=== PATIENT | female | born 1945 | race Caucasian/White ===

== ENCOUNTER → 2017-06-10 | Outpatient (CLI) | payer BC ==
--- NOTE | 2017-06-18 06:19 | CODING QUERY MEDICAL NECESSITY ---
CQSUPPORTING DIAGNOSIS NEEDED A supporting diagnosis is required for the test/procedure performed on this patient in order for us to be reimbursed by the patient's insurance. Please provide a supporting diagnosis for the following test/procedure listed below next to the test name along with your signature. *If there is no additional diagnosis for this patient that would support the following test/procedure please document that below next to the test/procedure. Test(s)/Procedure(s) that require a supporting diagnosis: ALEX 06/10/17 BONE MINERAL DENSITY STUDY Provider Signature: Date: Thank you Yin Lopez Health Information Management Once completed, please kindly fax back to [phone] For questions please call [phone]
== END | disposition home or self-care (01) ==
LOC: C.MAMM 10:27
PROVIDERS: ATTEND Family Medicine
DX: E78.5 Hyperlipidemia, unspecified (principal); I10 Essential (primary) hypertension; M85.80 Other specified disorders of bone density and structure, unspecified site

== ENCOUNTER 2024-08-11 09:20 | Observation (INO) ==
--- NOTE | 2024-07-01 10:14 | PAT Medication Instructions ---
Medication Instructions Date of Service July 01, 2024 Home Medications allopurinol 300 mg tablet 300 mg PO QAM doxycycline monohydrate 40 mg capsule,immediate - delay release (Oracea) 40 mg PO QAM lorazepam 0.5 mg tablet 0.5 mg PO HS naproxen 500 mg tablet 500 mg PO BID sertraline 50 mg tablet 50 mg PO QAM cholecalciferol (vitamin D3) 50 mcg (2,000 unit) tablet (Vitamin D3) 50 mcg PO QAM metoprolol succinate 25 mg tablet,extended release 24 hr 25 mg PO HS omega 5-ohe-fdk-fish oil 900 mg-1,400 mg capsule,delayed release 1 cap PO BID rosuvastatin 10 mg tablet 10 mg PO QAM calcium 600 mg capsule 600 mg PO QAM coenzyme Q10 100 mg chewable tablet 200 mg PO QAM multivitamin-ferrous fumarate-folic acid 18 mg-400 mcg tablet (Centrum Women) 1 tab PO QAM ASK your surgeon for instructions naproxen 500 mg tablet 500 mg PO BID STOP taking 2 weeks before surgery (or as soon as possible if surgery is within 2 weeks) omega 2-cuj-ghn-fish oil 900 mg-1,400 mg capsule,delayed release 1 cap PO BID coenzyme Q10 100 mg chewable tablet 200 mg PO QAM DO NOT take the morning of surgery cholecalciferol (vitamin D3) 50 mcg (2,000 unit) tablet (Vitamin D3) 50 mcg PO QAM calcium 600 mg capsule 600 mg PO QAM multivitamin-ferrous fumarate-folic acid 18 mg-400 mcg tablet (Centrum Women) 1 tab PO QAM Take morning of surgery With a small sip of water, OTHERWISE NOTHING TO EAT OR DRINK AFTER MIDNIGHT: allopurinol 300 mg tablet 300 mg PO QAM doxycycline monohydrate 40 mg capsule,immediate - delay release (Oracea) 40 mg PO QAM sertraline 50 mg tablet 50 mg PO QAM rosuvastatin 10 mg tablet 10 mg PO QAM Take evening before surgery lorazepam 0.5 mg tablet 0.5 mg PO HS metoprolol succinate 25 mg tablet,extended release 24 hr 25 mg PO HS Other Notes If you have any questions please call us at [phone] or [phone] or [phone] or [phone]
--- NOTE | 2024-07-09 10:34 | Anesthesiology Consultation ---
Date of Service July 09, 2024 Assessment & Plan (1) Encounter for pre-operative examination: - Infectious disease screening: Per assessment on 07/09/24: No known recent infectious disease contacts or current infectious disease symptoms. - Outpatient joint assessment: Pt currently scheduled for inpatient pathway. If surgeon requests review for outpatient joint pathway, patient is not recommended candidate for outpatient joint program from anesthesia standpoint based on available information. - Abnormal preop EKG: LBBB noted on preop EKG. Not evident on comparison EKGs in system or available previous cardiac records. Patient aware of need for preop cardiac evaluation d/t abnormal preop EKG. She previously followed with Dr. Miller and would like preop evaluation arranged with their office if possible (last seen 2021). Awaiting preop cardiac evaluation (Dr. Miller, appt TBD). Patient otherwise acceptable risk for surgery. Chart Review Chart Review: Patient seen in Pre Admission Testing Teaching & Discussion Pre-Anesthesia Teaching/Discussion Notes: Instructed NPO after midnight before surgery,except medications with 15 cc of water. Medication instructions provided according to the PAT guidelines. History Surgery Operation Date: 08/11/24 07:00 Proposed Procedures p Right Total Knee Arthroplasty - Enrique Capps MD Height/Weight Height: 5 ft 4 in Weight: 105.3 kg Allergies Allergy/AdvReac Type Severity Reaction Status Date / Time banana Allergy Intermediate Gastrointestinal Verified 07/01/24 09:36 Upset atorvastatin AdvReac Intermediate Dyspnea Verified 07/01/24 09:36 Sulfa (Sulfonamide AdvReac Intermediate Rash Verified 07/01/24 09:36 Antibiotics) Medications Home Medications Medication Instructions Recorded Confirmed Last Taken allopurinol 300 mg tablet 300 mg PO QAM 08/31/20 07/01/24 Unknown doxycycline monohydrate 40 mg 40 mg PO QAM 08/31/20 07/01/24 Unknown capsule,immediate - delay release (Oracea) lorazepam 0.5 mg tablet 0.5 mg PO HS 08/31/20 07/01/24 Unknown naproxen 500 mg tablet 500 mg PO BID 08/31/20 07/01/24 Unknown sertraline 50 mg tablet 50 mg PO QAM 08/31/20 07/01/24 Unknown cholecalciferol (vitamin D3) 50 50 mcg PO QAM 09/03/22 07/01/24 Unknown mcg (2,000 unit) tablet (Vitamin D3) metoprolol succinate 25 mg 25 mg PO HS 09/03/22 07/01/24 Unknown tablet,extended release 24 hr omega 1-lyi-aqw-fish oil 900 1 cap PO BID 09/03/22 07/01/24 Unknown mg-1,400 mg capsule,delayed release rosuvastatin 10 mg tablet 10 mg PO QAM 09/03/22 07/01/24 Unknown calcium 600 mg capsule 600 mg PO QAM 07/01/24 07/01/24 Unknown coenzyme Q10 100 mg chewable tablet 200 mg PO QAM 07/01/24 07/01/24 Unknown multivitamin-ferrous 1 tab PO QAM 07/01/24 07/01/24 Unknown fumarate-folic acid 18 mg-400 mcg tablet (Centrum Women) Past Medical History Medical History Osteoarthritis Tachycardia Diverticular disease IBS (irritable bowel syndrome) Anxiety History of COVID-19 Mild sleep apnea Mitral valve prolapse Asthma Hypertension Elevated cholesterol Exercise / Class Metabolic Activity III < 4 Walking/Shop/Light housework (one FS: No CP, + mild SOB) Past Family History Family History Mother Colon cancer Other Coronary heart disease Deep vein thrombosis Esophageal cancer Past Surgical History Surgical History PONV (postoperative nausea and vomiting) History of arthroscopy History of colonoscopy Hx of tonsillectomy H/O laminectomy Past Anesthesia History No Hx of Anesthesia Complications and No Family Hx of Anesthesia Complications History of PONV No Hx of Motion Sickness and History of PONV (Nausea) Social History Smoking Status: Never smoker Do You Dip or Chew Tobacco: No Hx Alcohol Use: No Hx Substance Use: No substance use type: does not use Review of Systems Occasional palpitations. Patient denies chest pain, shortness of breath, fever, chills, cough, wheezing. Physical Exam Vital Signs BP 124/84 P 56 TEMP 98.6 SP02 97%RA RESP 16 Physical Full cervical extension range of motion. Full TMJ range of motion. TMD 3 finger breaths Mallampati Score I Dentition: intact, + caps Lungs: clear throughout to auscultation Cardiac: regular rate and rhythm, no murmurs noted Spine: normal Carotid arteries: negative bruit Extremities: no LE edema Lab Results Anesthesia Preop Results Results Anesthesia Widget: WBC 8.32 K/ul (4.8-10.8) 07/09/24 Hgb 13.1 g/dl (12.0-16.0) 07/09/24 Hct 40.2 % (37.0-47.0) 07/09/24 Plt 188 K/uL (130-400) 07/09/24 Na 137 mmol/L (136-145) 07/09/24 K 4.2 mmol/L (3.5-5.1) 07/09/24 Cl 101 mmol/L (98-107) 07/09/24 CO2 29 mmol/L (21-32) 07/09/24 BUN 23 mg/dl (6-23) 07/09/24 Creat 0.64 mg/dl (0.6-1.2) 07/09/24 Glucose Level 90 mg/dl (70-99(Fasting)) 07/09/24 PT 10.8 Seconds (9.0-12.0) 07/09/24 PTT 27 Seconds (21-31) 07/09/24 INR 1.0 (0.9-1.1) 07/09/24 Blood Type O Positive 07/09/24 Antibody Screen NEGATIVE 07/09/24 Testing Electrocardiogram Date: 07/09/24 SB with sinus arrhythmia at 53bpm. LBBB. Chest X-Ray Date: 07/09/24 FINDINGS: Cardiac mediastinal and hilar silhouettes are within normal limits. No pneumothorax or pleural effusion. The lungs are clear. Degenerative changes of the shoulders and spine. IMPRESSION: No acute process. Echocardiogram Date: 08/02/21 LVEF 65%. No RWMA. No LVH. Indeterminate LA pressures.
--- NOTE | 2024-08-08 14:00 | History & Physical Report ---
Date of Service August 08, 2024 Assessment & Plan (1) Degenerative arthritis of knee, bilateral: 78-year-old female with a 5-year history of increasing bilateral knee pain discomfort right-sided bit worse than left. She has failed conservative treatment. She like to proceed with right knee replacement. Plan: Stefani taken to the operating do right total knee replacement for the risks Mente this procedure explained the patient and include but not limited to a DVT PE infection neurological injury vascular bleeding palm pain limb range of motion this is fairly her symptoms incomplete relief of symptoms excetra. The patient understands and desires to proceed. Informed consent was obtained. She has fairly large and therefore with an increased risk of infection she is aware that. She has been seen and medically evaluated by her cardiology team and they have cleared her for surgery. She had essentially a fairly mildly abnormal stress test with a very small fixed defect without ischemia. Will plan on aspirin for DVT prophylaxis. She is planned to be discharged to home using formerly [facility] program. (2) Hypertension: (3) Elevated cholesterol: (4) Obesity (BMI 30-39.9): History of Present Illness Chief Complaint: . Bilateral knee pain and discomfort right side greater than left. Primary Care Provider: Darren Morillo . The patient is a 78-year-old female who we have been following for the past 5 years or so for her knee arthritis. She has been through extensive conservative treatment over the years which would become less successful. He has been through physical therapy as well as injection treatment. Right knee has become more bothersome than the left. She has had more more trouble staying active. She would like to proceed with right knee replacement. Allergies Allergy/AdvReac Type Severity Reaction Status Date / Time banana Allergy Intermediate Gastrointestinal Verified 07/01/24 09:36 Upset atorvastatin AdvReac Intermediate Dyspnea Verified 07/01/24 09:36 Sulfa (Sulfonamide AdvReac Intermediate Rash Verified 07/01/24 09:36 Antibiotics) Home Medications Medication Instructions Recorded Confirmed Type allopurinol 300 mg tablet 300 mg PO QAM 08/31/20 07/01/24 History doxycycline monohydrate 40 mg 40 mg PO QAM 08/31/20 07/01/24 History capsule,immediate - delay release (Oracea) lorazepam 0.5 mg tablet 0.5 mg PO HS 08/31/20 07/01/24 History naproxen 500 mg tablet 500 mg PO BID 08/31/20 07/01/24 History sertraline 50 mg tablet 50 mg PO QAM 08/31/20 07/01/24 History cholecalciferol (vitamin D3) 50 50 mcg PO QAM 09/03/22 07/01/24 History mcg (2,000 unit) tablet (Vitamin D3) metoprolol succinate 25 mg 25 mg PO HS 09/03/22 07/01/24 History tablet,extended release 24 hr omega 1-dqw-wzo-fish oil 900 1 cap PO BID 09/03/22 07/01/24 History mg-1,400 mg capsule,delayed release rosuvastatin 10 mg tablet 10 mg PO QAM 09/03/22 07/01/24 History calcium 600 mg capsule 600 mg PO QAM 07/01/24 07/01/24 History coenzyme Q10 100 mg chewable tablet 200 mg PO QAM 07/01/24 07/01/24 History multivitamin-ferrous 1 tab PO QAM 07/01/24 07/01/24 History fumarate-folic acid 18 mg-400 mcg tablet (Centrum Women) Past Med/Surg History Problem List (Updated 08/08/24 @ 13:59 by Enrique Capps MD) Obesity (BMI 30-39.9) Degenerative arthritis of knee, bilateral Toe fracture, right Degenerative spondylolisthesis L4-5 Encounter for pre-operative examination Medical History Osteoarthritis Tachycardia Controlled for metoprolol Diverticular disease IBS (irritable bowel syndrome) Anxiety History of COVID-19 08/2022 (home test), mild head cold symptoms > resolved Mild sleep apnea No Device Mitral valve prolapse Echo (07/2021): "Normal mitral valve" Asthma "Stable - no inhaler" Hypertension Elevated cholesterol "Stable" Surgical History PONV (postoperative nausea and vomiting) History of arthroscopy right knee History of colonoscopy Hx of tonsillectomy H/O laminectomy lumbar Family History Mother Colon cancer Other Coronary heart disease Deep vein thrombosis Esophageal cancer Social History Smoking Status: Never smoker Second Hand Exposure: No; Do You Dip or Chew Tobacco: No; Hx Alcohol Use: No Hx Substance Use: No Preferred Language: Setswana Communication Ability: Effective Major Assembly Lineman Required: No Beliefs That Will Affect Care: None marital status: Current Living Situation: Spouse Feels Safe at Home: Yes Assistive Devices: Glasses and Hearing Aid - Bilateral Review of Systems All systems reviewed & are unremarkable except as noted in HPI & below. Physical Exam . Physical examination was a pleasant moderately obese middle-age female. Examination of both knees reveal patient walks with a bit of a waddling gait. Good varus alignment to both knees. Range of motion on the right is 10-1 05 and the left is 5-1 20. No particular pain with hip motion on either side there is no instability. She is neurologically intact but negative straight leg raise bilaterally. Constitutional WD/WN, vitals as above Respiratory normal respiratory effort, lungs clear to auscultation Cardiovascular RRR, no murmur, no edema Gastrointestinal (Abdomen) normal bowel sounds, soft, nontender, no hepatosplenomegaly Results & Data Results & Data Laboratory Results . Diagnostic Findings . X-rays of both knees were reviewed. Shows advanced bilateral knee DJD. She is got complete loss of medial joint space in both knees right side a bit worse than left. She got tricompartment disease. Diffuse osteopenia. Moderate chondrocalcinosis. PG Care Time/CCT Total # of Minutes Spent Total Time Spent with Patient: Total time spent is greater than 50% in coordination of care (as documented) at patient's floor/unit and/or counseling patient: Coding Level of Care Code None Diagnoses Degenerative arthritis of knee, bilateral M17.0 Hypertension I10 Elevated cholesterol E78.00 Obesity (BMI 30-39.9) E66.9
[~2024-08-11 09:20] MED LIST: ROPIVACAINE 0.5% 5 MG/ML 30 ML VIAL ONE
[2024-08-11] MEDS: LR 500ML BOLUS, THEN 15ML/HR IV SCH (10:07)
[2024-08-11] MEDS: LR 60ML/HR IV SCH (10:07)
[2024-08-11] MEDS: FAMOTIDINE 20 MG TAB PO SCH (10:08)
[2024-08-11] MEDS: METOCLOPRAMIDE HCL 10 MG TABLET PO SCH (10:08)
[2024-08-11] MEDS: ACETAMINOPHEN 500 MG TAB PO SCH ×2 (10:08→21:32)
[2024-08-11] MEDS: CeleBREX 200 MG CAP PO SCH (10:08)
[2024-08-11] MEDS: dexAMETHasone**PF** 10 MG/ML VIAL IV SCH (10:11)
--- NOTE | 2024-08-11 10:28 | History & Physical Bridge Note ---
Date of Service August 11, 2024 History & Physical Bridge Note I have examined the patient, reviewed the History & Physical and in the interval since the performance of the History & Physical I have noted the following changes of clinical significance: no changes noted
[2024-08-11] MEDS ORDERED: ePHEDrine sulfate 50 MG/ML AMP IV PRN (11:13)
[2024-08-11] MEDS ORDERED: HYDROmorphone INJ 1 MG/ML SYRINGE IV PRN (11:13)
[2024-08-11] MEDS ORDERED: KETOROLAC 30 MG/ML VIAL IV PRN (11:13)
[2024-08-11] MEDS ORDERED: ATROPINE SULFATE 0.1 MG/ML 10ML SYR IV PRN (11:13)
[2024-08-11] MEDS ORDERED: ONDANSETRON INJ 2 MG/ML 2 ML VIAL IV PRN ×2 (11:13→15:20)
[2024-08-11] MEDS ORDERED: MIDAZOLAM HCL 1 MG/ML 2ML VIAL ONE (11:41)
[2024-08-11] MEDS ORDERED: fentaNYL citrate PF 100 MCG/2 ML VIAL ONE (11:42)
[2024-08-11] MEDS ORDERED: ONDANSETRON INJ 2 MG/ML 2 ML VIAL ONE ×3 (11:42→11:45)
[2024-08-11] MEDS ORDERED: PROPOFOL IV EMULSION 10 MG/ML 20 ML VIAL IV ONE (11:42)
[2024-08-11] MEDS ORDERED: DEXAMETHASONE SOD INJ 4 MG/ML VIAL ONE (11:45)
[2024-08-11] MEDS ORDERED: METOCLOPRAMIDE HCL INJ 5 MG/ML 2 ML VIAL ONE (11:45)
[2024-08-11] MEDS ORDERED: SCOPOLAMINE 1 MG/72 HR TDSY PATCH TD ONE (12:38)
[2024-08-11] MEDS: ceFAZolin 2000MG 2,000 MG/15 ML SYR IV SCH ×2 (12:42→19:42)
[2024-08-11] MEDS: ORTHO JOINT ANESTHETIC ONE (13:29)
[2024-08-11] MEDS: TRANEXAMIC ACID 1,000 MG **IV Intra-op IV SCH (13:40)
[2024-08-11] MEDS: ROPIV 0.5% 246mg, Ketorolac 30mg, EPINEPHrine 0.5mg in NSS INFIL SCH (14:12)
--- NOTE | 2024-08-11 14:39 | Operative Report ---
PG Post Operative Report Pre & Post Diagnosis Operation Date: 08/11/24 11:50 Pre-Op Diagnosis: Degenerative Arthritis of Knee, Right Post-Op Diagnosis: Degenerative Arthritis of Knee, Right I identified the patient and participated in the time-out.: Yes Procedure Operation Date: 08/11/24 11:50 Actual Procedures p Right Total Knee Arthroplasty(Right) - Enrique Capps MD Surgeon Enrique Capps MD Engineer Exhauster Brad hKan PA-C Estimated Blood Loss 50 Findings Consistent with Post-Op Diagnosis Operative findings revealed a large soft tissue envelope. She had grade 4 qxqw-en-keyo disease in all 3 compartments of the knee. She had osteophytes in all 3 compartments. Diffuse osteopenia. Specimens Right knee sent for right knee sent for pathology. Anesthesia Type Spinal MAC Complications none Disposition Accompanied Patient To Recovery: No Indications Patient is a 78-year-old female has had a several year history increasing bilateral knee pain discomfort right side greater than left. She been through extensive conservative care which became less successful over time. X-rays show advanced right knee tricompartment DJD. She elected proceed with total knee arthroplasty. Patient is fairly large in size and also fairly osteopenic. Therefore used a cemented stem to maximize stability of the tibia. Description of Procedure Operative implants consist of: 1 Biomet Vanguard size 65 right posterior stabilized femoral component. 2. Biomet size 67 modular tibial tray with an 80 x 10 mm stem in extension 3. 10 mm posterior Byce polyethylene insert. 4. 28 x 8 all poly patella. The patient was taken the operating, identified, placed on the operating table in the supine position. All contractors were appropriately padded. IV antibiotics fibra anesthesia team. A spinal anesthetic and adductor canal block had been Weida holding area. A Tripathi catheter was placed in a sterile fashion. The right side turn was then placed. The right lower extremity was then prepped and draped in usual sterile fashion. The right leg was elevated and exsanguinated with use of an Esmarch and a turn was placed at 300 mmHg. An anterior approach to the right knee was then performed to longitudinal incision centered over the patella. Sharp dissection was carried through subcutaneous tissue down the extensor mechanism. A medial parapatellar throbby incision was made. Some subperiosteal dissection was carried out medially. The fat pad was resected from Neath patella tendon. Lateral patellofemoral ligament was released. Patella subluxate laterally knee was flexed. The osteophytes taken off distal femur. The ACL and PCL were Tamara from the distal femur the tibia subluxated anteriorly. The external treatment LYMErix then placed on the anterior face the tibia and adjusted 14 mm medially. Proximal tibial cut was made remove about 2 mm of bone from the medial side. Tibia sized to a size 67. Some osteophytes were taken off medially and posterior medially. Attention drawn the femur. The distal femur was entered with a sharp drill. Intramedullary canal was suction. A right 5 degree valgus cutting guide was placed. The distal femoral cutting block was pinned in place. This femoral cut was made take an additional 3 mm of bone off distal femur. The femur was then sized to a size 65. Sized exactly to 65. The AP cutting block was pinned parallel to the epicondylar axis which was 4 degrees of external rotation. The anterior cut, anterior chamfer, posterior cut, posterior chamfer cuts were made. The box cutting guide was marjan kaitlin and just slight lateral box cut was made. The knee was flexed. The remnants of the medial and lateral menisci were excised. The osteophytes taken off the posterior aspect the femur. A trial femoral component was placed. The tibial tray was then pinned. The drill and stem punch were used to create defect in proximal tibia for the tibial tray. I then reamed up to a size 12. We then punched the cancellous bone again with the punch. We then placed a 67 tibial tray with a stem extension. We trialed the knee and the 10 mm insert fit most appropriately. Attention drawn the patella. The patella was cleaned of all soft tissue. Patella thickness measured about 21 mm in thickness was cut down to 12. Was sized to a size 28 patella. The lug holes were drilled for the 28 patella. The lateral osteophytes removed. Patella button was placed. Knee was taken through range of motion patella tracked nicely with no thumbs test. Attention drawn to placing permanent components. All trial components were removed. Bone plug was placed in the distal femur limit blood loss. Double batch Palacos G cement was mixed. A Biomet Vanguard size 65 right posterior stabilized femoral component, size 67 tibial tray with a 10 mm x 80 mm stem extension, a 10 mm posterior Byce polyethylene insert, and a 28 x 8 all poly patella then cemented in place. Knee was brought out in full extension till cement hardened. Final cement check was then performed. The pericapsular tissues were injected with total 100 cc of joint mix. The patient did receive 1 g tranexamic acid. The tourniquet was then let down for final tourniquet time of 55 minutes. Hemostasis assured use electrocautery. Extensor Meclomen closed with combination 1 PDS suture #1 Vicryl suture in a [id number] fashion. Extensor Meclomen checked found to be intact the subcutaneous tissue then closed with 2 Dexon suture in a buried interrupted fashion skin was closed skin pamela. Leg was then cleaned and dried a sterile dressing with Xeroform, 4 fours, sterile cast padding, Stephon bandage were applied. Patient then transferred to the recovery room in stable condition. Patient tolerated procedure well and there were no complications. Brad Khan, my physician plastic surgery assistant, was present for the entire procedure. His assistance was essential and required for appropriate patient positioning, prepping and draping, surgical exposure, performing the technical details of the operation, placement the implants, closure of the wound, and placement of the sterile bandage. I attest to the content of the Intraoperative Record and any orders documented therein. Any exceptions are noted below.
[2024-08-11] MEDS ORDERED: bisacodyL 10 MG SUPP PR PRN (15:20)
[2024-08-11] MEDS ORDERED: METOCLOPRAMIDE HCL INJ 5 MG/ML 2 ML VIAL IV PRN (15:20)
[2024-08-11] MEDS ORDERED: NALOXONE HCL 0.4 MG/1 ML VIAL/CARP IV PRN (15:20)
[2024-08-11] MEDS ORDERED: MAGNESIUM HYDROXIDE SUSP 30 ML UDC PO PRN (15:20)
[2024-08-11] MEDS ORDERED: ALUMINUM/MAGNESIUM SUSP 30 ML UDC PO PRN (15:20)
[2024-08-11] MEDS ORDERED: oxyCODONE HCL IR 5 MG TAB (IMMEDIATE RELEASE) PO PRN (15:20)
[2024-08-11] MEDS ORDERED: HYDROmorphone INJ 0.5 MG/0.5 ML SYR IV PRN (15:20)
[2024-08-11] MEDS: FAMOTIDINE/PF 20 MG/2 ML VIAL IV ONE (15:22)
--- NOTE | 2024-08-11 15:25 | XRay Report ---
XR knee RT 1 or 2V routine CLINICAL HISTORY: Surgical Post Op TECHNIQUE: 2 views of the right knee were obtained. Comparison: Comparison is made to knee radiographs 07/09/2024 FINDINGS: Patient is status post total knee arthroplasty with expected postsurgical changes including soft tiss ue swelling and subcutaneous emphysema. No periarticular lucency or hardware fracture is seen. IMPRESSION: Expected postoperative appearance status post placement of total knee arthroplasty. ACT 112: Negative or not required by law. Electronically signed by: Kyle Murphy M.D. 08/11/2024 3:24 PM
--- NOTE | 2024-08-11 15:45 | Anesthesiology Progress Note ---
Date of Service August 11, 2024 Anesthesia Post Procedure Vital Signs Vital Signs: Temp Pulse Pulse Resp BP Pulse Ox O2 Del Method 08/11/24 15:15 36.4 C L 86 18 125/74 96 Room Air 08/11/24 15:00 36.2 C L 85 16 130/68 96 Room Air 08/11/24 14:50 84 16 134/72 96 Room Air 08/11/24 14:40 86 15 128/72 99 Oxymask 08/11/24 14:33 36.0 C L 88 15 121/62 98 Oxymask 08/11/24 09:56 37.1 C 76 21 181/105 H 96 Room Air O2 Flow Rate 08/11/24 15:15 08/11/24 15:00 08/11/24 14:50 08/11/24 14:40 5 08/11/24 14:33 5 08/11/24 09:56 Pain Intensity Right Knee: Pain Intensity: 3 Transfer of Care Handoff Completed per policy Notes Mental Status: alert / awake / arousable and participated in evaluation Patient Amnestic to Procedure: Yes Nausea / Vomiting: adequately controlled Pain: adequately controlled Airway Patency, RR, SpO2: stable & adequate BP & HR: stable & adequate Hydration State: stable & adequate Neuraxial Anesthesia: was administered and sensory block is resolving Anesthetic Complications: no major complications apparent and Pt Satisfied with anesthetic care
[2024-08-11] MEDS: SODIUM CHLORIDE 0.9% 1,000 ML IV SCH (15:46)
[2024-08-11] MEDS: KETOROLAC TROMETHAMINE 15 MG/ML VIAL IV SCH (16:30)
[2024-08-11] MEDS: ASCORBIC ACID 500 MG TAB PO SCH (16:55)
[2024-08-11] MEDS: TRANEXAMIC ACID / 0.7% NACL 1,000 MG/100 ML BAG IV SCH (19:42)
[2024-08-11] MEDS ORDERED: SENNA 8.6 MG TAB PO SCH (21:00)
[2024-08-11] MEDS: ASPIRIN 81 MG ECTAB PO SCH (21:31)
[2024-08-11] MEDS: OMEGA-3 (PURIFIED FISH OIL) 1 GM CAP PO SCH (21:31)
[2024-08-11] MEDS: DOCUSATE SODIUM 100 MG CAP PO SCH (21:32)
[2024-08-11] MEDS: LORazepam 0.5 MG TAB PO SCH (21:32)
[2024-08-11] MEDS: METOPROLOL SUCC 25MG EXT REL TAB PO SCH (21:32)
[2024-08-11] MEDS: SENNA 8.6 MG TAB PO SCH (21:33)
[2024-08-12 07:06] LABS: Hemoglobin 11.1 g/dl (12.0-16.0); Mean Corpuscular Hemoglobin 29.2 pg (25.0-34.0); Mean Corpuscular Hgb Conc 33.6 g/dL (32.0-36.0); Mean Corpuscular Volume 86.8 fL (80.0-100.0); Mean Platelet Volume 10.4 fL (9.4-12.4); Platelet Count 191 K/uL (130-400); RDW Coefficient of Variation 13.5 % (11.5-14.5); RDW Standard Deviation 42.6 fL (36.4-46.3); White Blood Count 14.52 K/ul (4.8-10.8)
[2024-08-12 07:39] LABS: BUN Creatinine Ratio 24.3 (10-20); Calcium 8.8 mg/dl (8.6-10.3); Creatinine Clr Calc Pharmacy 79.1 ml/min; Potassium 4.4 mmol/L (3.5-5.1)
[2024-08-12] MEDS: CALCIUM CARBONATE 1250MG TAB PO SCH (08:25)
[2024-08-12] MEDS: CHOLECALCIFEROL 25 MCG (1000 UNITS) TAB PO SCH (08:25)
[2024-08-12] MEDS: dexAMETHasone 10 MG in SYRINGE 0 ML IV SCH (08:25)
[2024-08-12] MEDS: allopurinoL 300 MG TAB PO SCH (08:25)
[2024-08-12] MEDS: SERTRALINE HCL 50 MG TABLET PO SCH (08:26)
[2024-08-12] MEDS: MULTIVITAMIN TAB PO SCH (08:26)
[2024-08-12] MEDS: ROSUVASTATIN CALCIUM 10 MG TAB PO SCH (08:26)
[2024-08-12] MEDS ORDERED: MULTIVITAMIN TAB PO SCH (09:00)
--- NOTE | 2024-08-12 09:10 | Orthopedic Progress Note ---
Date of Service August 12, 2024 Assessment & Plan (1) Status post right knee replacement: Plan: 78-year-old female postop day 1 from right knee replacement doing well. Pains controlled. She is neurologically intact. Plan: 1. DVT prophylaxis including thigh-high teds, SCDs, aspirin twice a day. 2. PT/OT. Weight-bear as tolerated. Right total knee protocol. 3. Pain control doing okay with current pain regimen. 4. Disposition. Plan is to discharge to home with some home health if she does okay in therapy today. Admission and Anticipated Discharge Date Admission Date: August 11, 2024 Subjective 78-year-old female postop day 1 from right knee replacement. She is doing well. Had a good night. Reports no significant pain. No chest pain or shortness of breath. Not feeling dizzy or lightheaded. Physical Exam Physical Exam: Physical exam shows a pleasant elderly female. She is walked around her room with a walker with a therapist this morning. Examination the right leg reveals dressing be clean dry and intact. She can dorsiflex and plantarflex her foot appropriately. She is neurologically intact. No drainage. Respiratory: normal respiratory effort, lungs clear to auscultation Cardiovascular: RRR, no murmur, no edema Gastrointestinal (Abdomen): normal bowel sounds, soft, nontender, no hepatosplenomegaly Results & Data Vital Signs (Past 12 Hours) Vital Signs Temp Pulse Pulse Resp BP Pulse Ox O2 Del Method 08/12/24 08:21 Room Air 08/12/24 07:33 36.9 C 65 18 122/68 98 Room Air 08/12/24 03:23 36.5 C 72 18 115/74 97 Room Air 08/12/24 01:21 Room Air 08/11/24 23:00 36.4 C L 80 16 122/76 95 Room Air Laboratory Results Hemoglobin is 11.1. Hematocrit is 33.0. Electrolytes are stable.
--- NOTE | 2024-08-17 07:42 | Discharge Summary ---
Date of Service August 17, 2024 Discharge Data Procedures Performed Operation Date: 08/11/24 11:50 Actual Procedures p Right Total Knee Arthroplasty(Right) - Enrique Capps MD Hospital Course (1) Status post right knee replacement: This is a 78 year old patient admitted on 08/11/24 and underwent total knee arthroplasty. She tolerated the procedure well and there were no complications. Transferred to the PACU post op and later to the orthopedic floor for further care. She was given ancef for antibiotic prophylaxis. She was also given KATHRYN stockings, SCDs, and aspirin for DVT prophylaxis. Hemoglobin, hematocrit, and vital signs were monitored during her hospital stay and remained stable. Did not require any blood transfusions. There were no complications during her hospital stay. By post op day #1 the patient was tolerating a regular diet, pain was reasonably controlled with oral pain medicine, and he was participating in physical therapy. On post op day #1 the patient was discharged home and set up with home health care. He was given printed discharge instructions including prescriptions for extra strength tylenol, aspirin, cefadroxil, ketorolac, zofran, oxycodone, and senokot. Continue physical therapy, weight bearing as tolerated. Continue KATHRYN stockings. Follow up approximately 2 weeks post op or sooner if there are problems or concerns. Coding Level of Care Code None Diagnoses Status post right knee replacement Z96.651
== END 2024-08-12 11:45 | disposition home health service (06) ==
LOC: ASU 09:20 → 3N 09:20
DX: I10 Essential (primary) hypertension; M17.11 Unilateral primary osteoarthritis, right knee; Z68.39 Body mass index [BMI] 39.0-39.9, adult; J45.909 Unspecified asthma, uncomplicated; E66.9 Obesity, unspecified; Z91.018 Allergy to other foods; G47.33 Obstructive sleep apnea (adult) (pediatric); K21.9 Gastro-esophageal reflux disease without esophagitis; E78.00 Pure hypercholesterolemia, unspecified; Z88.2 Allergy status to sulfonamides; Z79.899 Other long term (current) drug therapy; K58.9 Irritable bowel syndrome, unspecified; Z79.82 Long term (current) use of aspirin; Z88.8 Allergy status to other drugs, medicaments and biological substances

== ENCOUNTER 2025-08-24 05:17 | Observation (INO) ==
--- NOTE | 2025-07-28 10:02 | PAT Medication Instructions ---
Medication Instructions Date of Service July 28, 2025 Home Medications allopurinol 300 mg tablet 300 mg PO QAM doxycycline monohydrate 40 mg capsule,immediate - delay release (Oracea) 40 mg PO QAM lorazepam 0.5 mg tablet 0.5 mg PO HS sertraline 50 mg tablet 50 mg PO QAM cholecalciferol (vitamin D3) 50 mcg (2,000 unit) tablet (Vitamin D3) 50 mcg PO QAM metoprolol succinate 25 mg tablet,extended release 24 hr 25 mg PO HS omega 3-lty-jvk-fish oil 900 mg-1,400 mg capsule,delayed release 1 cap PO BID rosuvastatin 10 mg tablet 10 mg PO QAM calcium 600 mg capsule 600 mg PO QAM coenzyme Q10 100 mg chewable tablet 200 mg PO QAM multivitamin-ferrous fumarate-folic acid 18 mg-400 mcg tablet (Centrum Women) 1 tab PO QAM acetaminophen 650 mg tablet,extended release (Tylenol Arthritis Pain) 1,200 mg PO BID aspirin 81 mg tablet,delayed release (Joe Low Dose Aspirin) 81 mg PO QAM sacubitril 24 mg-valsartan 26 mg tablet (Entresto) 1 tab PO BID Continue as directed doxycycline monohydrate 40 mg capsule,immediate - delay release (Oracea) 40 mg PO QAM ASK your prescriber and surgeon aspirin 81 mg tablet,delayed release (Joe Low Dose Aspirin) 81 mg PO QAM STOP taking 2 weeks before surgery omega 2-mwr-wlx-fish oil 900 mg-1,400 mg capsule,delayed release 1 cap PO BID coenzyme Q10 100 mg chewable tablet 200 mg PO QAM DO NOT take the morning of surgery cholecalciferol (vitamin D3) 50 mcg (2,000 unit) tablet (Vitamin D3) 50 mcg PO QAM calcium 600 mg capsule 600 mg PO QAM multivitamin-ferrous fumarate-folic acid 18 mg-400 mcg tablet (Centrum Women) 1 tab PO QAM sacubitril 24 mg-valsartan 26 mg tablet (Entresto) 1 tab PO BID Take morning of surgery With a small sip of water, OTHERWISE NOTHING TO EAT OR DRINK AFTER MIDNIGHT: allopurinol 300 mg tablet 300 mg PO QAM sertraline 50 mg tablet 50 mg PO QAM rosuvastatin 10 mg tablet 10 mg PO QAM acetaminophen 650 mg tablet,extended release (Tylenol Arthritis Pain) 1,200 mg PO BID Take evening before surgery lorazepam 0.5 mg tablet 0.5 mg PO HS metoprolol succinate 25 mg tablet,extended release 24 hr 25 mg PO HS acetaminophen 650 mg tablet,extended release (Tylenol Arthritis Pain) 1,200 mg PO BID sacubitril 24 mg-valsartan 26 mg tablet (Entresto) 1 tab PO BID Other Notes If you have any questions please call us at [phone] or [phone] or [phone] or [phone]
--- NOTE | 2025-08-05 11:11 | Anesthesiology Consultation ---
Date of Service August 05, 2025 Assessment & Plan (1) Encounter for pre-operative examination: - Infectious disease screening: Per assessment on 08/05/25- No known recent infectious disease contacts or current infectious disease symptoms. - Outpatient joint assessment: Pt currently scheduled for inpatient pathway. If surgeon requests review for outpatient joint pathway, patient is not a recommended candidate for outpatient joint program from anesthesia standpoint based on available information. - S/P Right TKA 08/11/24: SAB L3-4 (1 attempt) + regional - Cardiology visit 05/21/25: "..history of LBBB, SHANNON on CPAP, and CANTRELL.. She notes that she is less SOB and can walk further since starting the Entresto.. She got new CPAP equipment and is planning to start using it.. She does at times have mild orthostatic symptoms. No fainting or falls.. Her knee is her biggest impediments.. She can ascend a flight of stairs.. She generally feels more tired and weak than she did 6 months ago.." 04/2025 Echo reviewed. Continued on same regimen. 6 month f/u recommended. Chart Review Chart Review: Acceptable Risk for Surgery and Patient seen in Pre Admission Testing Teaching & Discussion Pre-Anesthesia Teaching/Discussion Notes: Instructed NPO after midnight before surgery,except medications with 15 cc of water. Medication instructions provided according to the PAT guidelines. History Surgery Operation Date: 08/24/25 07:00 Proposed Procedures p Left Total Knee Arthroplasty - Enrique Capps MD Height/Weight Height: 5 ft 4 in Weight: 105.4 kg Allergies Allergy/AdvReac Type Severity Reaction Status Date / Time banana Allergy Intermediate Gastrointestinal Verified 08/05/25 10:02 Upset atorvastatin AdvReac Intermediate Dyspnea Verified 08/05/25 10:02 Sulfa (Sulfonamide AdvReac Intermediate Rash Verified 08/05/25 10:02 Antibiotics) Medications Home Medications Medication Instructions Recorded Confirmed Last Taken allopurinol 300 mg tablet 300 mg PO QAM 08/31/20 08/05/25 08/11/24 08:00 doxycycline monohydrate 40 mg 40 mg PO QAM 08/31/20 08/05/25 08/11/24 08:00 capsule,immediate - delay release (Oracea) lorazepam 0.5 mg tablet 0.5 mg PO HS 08/31/20 08/05/25 08/10/24 22:00 sertraline 50 mg tablet 50 mg PO QAM 08/31/20 08/05/25 08/11/24 08:00 cholecalciferol (vitamin D3) 50 50 mcg PO QAM 09/03/22 08/05/25 08/10/24 08:00 mcg (2,000 unit) tablet (Vitamin D3) metoprolol succinate 25 mg 25 mg PO HS 09/03/22 08/05/25 08/10/24 22:00 tablet,extended release 24 hr omega 8-lkq-gsy-fish oil 900 1 cap PO BID 09/03/22 08/05/25 07/21/24 mg-1,400 mg capsule,delayed release rosuvastatin 10 mg tablet 10 mg PO QAM 09/03/22 08/05/25 08/11/24 08:00 calcium 600 mg capsule 600 mg PO QAM 07/01/24 08/05/25 08/10/24 08:00 coenzyme Q10 100 mg chewable tablet 200 mg PO QAM 07/01/24 08/05/25 07/21/24 multivitamin-ferrous 1 tab PO QAM 07/01/24 08/05/25 08/10/24 08:00 fumarate-folic acid 18 mg-400 mcg tablet (Centrum Women) acetaminophen 650 mg 1,200 mg PO BID 07/28/25 08/05/25 Unknown tablet,extended release (Tylenol Arthritis Pain) aspirin 81 mg tablet,delayed 81 mg PO QAM 07/28/25 08/05/25 Unknown release (Joe Low Dose Aspirin) sacubitril 24 mg-valsartan 26 mg 1 tab PO BID 07/28/25 08/05/25 Unknown tablet (Entresto) Past Medical History Medical History Anxiety Asthma Stable, "very mild" No inhaler Degenerative arthritis of knee, bilateral Diverticular disease Elevated cholesterol "Stable" History of COVID-19 08/2022 (home test), mild head cold symptoms > resolved Hypertension IBS (irritable bowel syndrome) LBBB (left bundle branch block) Chronic, noted on 07/09/24 ECG, Echo performed 04/2025 Metallic taste After Covid vaccine 07/23/25, improving/"slightly" present still Mild sleep apnea No Device Mitral valve prolapse Hx per records Echo 04/12/25: No significant valvular disease, "Unremarkable mitral valve. Trace mitral valve regurgitation" Follows with Dr. Camara Osteoarthritis Tachycardia Controlled with metoprolol Exercise / Class Metabolic Activity III < 4 Walking/Shop/Light housework Past Family History Family History Mother Colon cancer Other Coronary heart disease Deep vein thrombosis Esophageal cancer Past Surgical History Surgical History H/O laminectomy Lumbar (50+ years ago) History of arthroscopy Right knee History of colonoscopy Hx of tonsillectomy PONV (postoperative nausea and vomiting) Status post right knee replacement (08/2024) SAB L3-4 (1 attempt) + regional Past Anesthesia History No Hx of Anesthesia Complications and No Family Hx of Anesthesia Complications History of PONV No Hx of Motion Sickness and History of PONV Social History Smoking Status: Never smoker Do You Dip or Chew Tobacco: No Hx Alcohol Use: Yes Alcohol type: wine alcohol intake frequency: holidays/special occasions only Hx Substance Use: No substance use type: does not use Review of Systems Patient denies chest pain, shortness of breath, fever, chills, cough, wheezing. Physical Exam Vital Signs BP 102/59 P 57 TEMP 98.2 SP02 97%RA RESP 16 Physical Full cervical extension range of motion. Full TMJ range of motion. TMD 3 finger breaths Mallampati Score I Dentition: missing upper right side (+ post present), + caps/crowns Lungs: clear throughout to auscultation Cardiac: regular rate and rhythm, no murmurs noted Spine: normal Carotid arteries: negative bruit Extremities: no LE edema Lab Results Anesthesia Preop Results Results Anesthesia Widget: WBC 9.10 K/ul (4.8-10.8) 08/05/25 Hgb 13.4 g/dl (12.0-16.0) 08/05/25 Hct 39.1 % (37.0-47.0) 08/05/25 Plt 173 K/uL (130-400) 08/05/25 Na 137 mmol/L (136-145) 08/05/25 K 4.4 mmol/L (3.5-5.1) 08/05/25 Cl 102 mmol/L (98-107) 08/05/25 CO2 27 mmol/L (21-32) 08/05/25 BUN 22 mg/dl (6-23) 08/05/25 Creat 0.76 mg/dl (0.6-1.2) 08/05/25 Glucose Level 91 mg/dl (70-99(Fasting)) 08/05/25 PT 10.9 Seconds (9.0-12.0) 08/05/25 PTT 27 Seconds (21-31) 08/05/25 INR 1.0 (0.9-1.1) 08/05/25 Blood Type O Positive 08/05/25 Antibody Screen NEGATIVE 08/05/25 Testing Electrocardiogram Date: 08/05/25 SB. 49bpm. LBBB. Chronic LBBB; noted on 07/09/24 comparison ECG. Echo done 04/12/25. Chest X-Ray Date: 08/05/25 Findings: + NAD Echocardiogram Date: 04/12/25 EF 60%. No RWMA. Moderate cLVH. Grade I DD. No significant valvular disease.
[2025-08-24] MEDS: METOCLOPRAMIDE HCL 10 MG TABLET PO SCH (05:59)
[2025-08-24] MEDS: ACETAMINOPHEN 500 MG TAB PO SCH ×2 (05:59→13:51)
[2025-08-24] MEDS: LR 500ML BOLUS, THEN 15ML/HR IV SCH (05:59)
[2025-08-24] MEDS: CeleBREX 200 MG CAP PO SCH (05:59)
[2025-08-24] MEDS: FAMOTIDINE 20 MG TAB PO SCH (05:59)
[2025-08-24] MEDS: dexAMETHasone**PF** 10 MG/ML VIAL IV SCH (06:00)
[2025-08-24] MEDS: LR 60ML/HR IV SCH (06:00)
[2025-08-24] MEDS ORDERED: ROPIVACAINE 0.5% 5 MG/ML 30 ML VIAL ONE (06:31)
[2025-08-24] MEDS ORDERED: BUPIVACAINE 0.5 % 5 MG/1 ML PF 10ML VIAL ONE (06:31)
[2025-08-24] MEDS ORDERED: ONDANSETRON INJ 2 MG/ML 2 ML VIAL ONE (06:38)
[2025-08-24] MEDS ORDERED: MIDAZOLAM HCL 1 MG/ML 2ML VIAL ONE (06:38)
--- NOTE | 2025-08-24 06:50 | History & Physical Bridge Note ---
Date of Service August 24, 2025 History & Physical Bridge Note I have examined the patient, reviewed the History & Physical and in the interval since the performance of the History & Physical I have noted the following changes of clinical significance: no changes noted
[2025-08-24] MEDS ORDERED: PROPOFOL IV EMULSION 10 MG/ML 20 ML VIAL IV ONE ×3 (07:12→08:33)
[2025-08-24] MEDS ORDERED: PHENYLEPHRINE 100MCG/ML 5ML SYR ONE (07:12)
[2025-08-24] MEDS ORDERED: LIDOCAINE 2% 2 ML VIAL/AMP(20MG/ML) INFIL ONE (07:12)
[2025-08-24] MEDS ORDERED: PHENYLEPHRINE HCL 10 MG/ML VIAL ONE (07:30)
[2025-08-24] MEDS: ORTHO JOINT ANESTHETIC ONE (07:37)
[2025-08-24] MEDS: ROPIV 0.5% 246mg, Ketorolac 30mg, EPINEPHrine 0.5mg in NSS INFIL SCH (07:37)
--- NOTE | 2025-08-24 09:16 | Operative Report ---
PG Post Operative Report Pre & Post Diagnosis Operation Date: 08/24/25 07:00 Pre-Op Diagnosis: Left Knee Degenerative Joint Disease Post-Op Diagnosis: Left Knee Degenerative Joint Disease I identified the patient and participated in the time-out.: Yes Procedure Operation Date: 08/24/25 07:00 Actual Procedures p Left Total Knee Arthroplasty(Left) - Enrique Capps MD Surgeon Enrique Capps MD [place] Artur Peña PA-C Estimated Blood Loss 50 Findings Consistent with Post-Op Diagnosis Operative findings were advanced left knee tricompartment DJD. She had grade 4 pwtx-ye-ffhw disease in all 3 compartments. She had diffuse osteopenia. Moderate osteophytes in all 3 compartments. Moderate-sized joint effusion. Fairly large soft tissue envelope. Specimens Left knee sent for pathology. Anesthesia Type Spinal MAC Complications none Disposition Accompanied Patient To Recovery: No Indications Patient is a 79-year-old female with a long history of bilateral knee pain discomfort described to gotten worse over time. She failed conservative measures. She had a right knee replaced about a year ago and doing well with this. Continued be limited by left knee pain and discomfort. She elected proceed with a left total knee arthroplasty. Due to her osteopenia we did elect to use a slightly longer cemented tibial stem. Description of Procedure Operative implants consist of: 1 Biomet Vanguard size 60 left posterior stabilized femoral component. 2. Biomet size 67 tibial tray with a 10 mm x 80 mm stem extension 3. 10 mm PS polyethylene insert. 4. 28 x 8 all poly patella. The patient was taken to the op room, identified, placed on the operative table in the supine position. All contact areas were meticulously padded. A Tripathi catheter was placed in sterile fashion. A left phytate was then placed. A spinal anesthetic had been implemented in the holding area along with an adductor canal block. The left lower extremity was then prepped and draped in usual sterile fashion. The left leg was elevated and exsanguinated with use of an Esmarch and tourniquet placed at 300 mmHg. An anterior approach left knee was then performed through a longitudinal incision centered over the patella. Sharp dissection was Through subcutaneous tissue down the extensor mechanism. A medial parapatellar arthrotomy incision was made. Some subperiosteal dissection was carried out medially. The fat pad was dissected from Neath patella tendon. The lateral patellofemoral ligament was released. Patella subluxated laterally and the knee was flexed. The osteophytes were taken off distal femur. The ACL and PCL were then released from distal femur and the tibia subluxated anteriorly. The external tibial LYMErix then placed on the interface the tibia and adjusted 14 mm medially. The proximal tibial cut was made remove about a millimeter bone from most deficient aspect medial tibial plateau. The tibia was then sized to a size 67. Some osteophytes taken off medially. Attention drawn the femur. The distal femur was then with a sharp drill. Intramedullary canal was suction. A left 5 degree valgus cutting guide was placed. The distal femoral cutting block was pinned in place. Distal femoral cut was made take an additional 3 mm of bone off distal femur. The femur was then sized to a size 60. The AP cutting block was pinned parallel to the epicondylar axis which was 4 degrees of external rotation. The anterior cut, anterior chamfer, posterior cut, posterior chamfer cuts were made. The box cutting guide was placed in a just slight lateral and the box cut was made. The knee was flexed. The remnants of the medial and lateral menisci were excised. The osteophytes taken off the posterior aspect of the femur. A trial femoral component was placed. The tibial tray was pinned in Indu external rotation and the drill and stem punch used to create defect in proximal tibia for the tibial tray. I did reamed up to a size 12-1/[address] the stem extension. Tibial tray was assembled and placed and fit nightly distally. We trialed the knee and the 10 mm insert fit most appropriately. Attention drawn the patella. The patella was cleaned of all soft tissues. Patella thickness measured 20 mm in thickness and was cut down to 13. Sized to size 28 patella. The lug holes were drilled for the 28 patella. The lateral osteophytes removed. Patella button was placed. Knee was taken through range of motion patella tracked nicely with no thumbs test. Attention then drawn to place the permanent components. All trial components removed. Bone plug was placed in the distal femur limit blood loss. A double batch Palacos G cement was mixed. A Biomet Vanguard size 60 left posterior stabilized femoral component, size 67 tibial tray with a 10 mm x 80 mm stem extension, a 10 mm Po stabilized polyethylene insert, and a 28 x 8 all poly patella then cemented in place. The knee was brought out into full extension till cement hardened. A final cement check was then performed. The pericapsular tissues were injected with total of 100 cc of Ortho mix. The patient did receive 1 g tranexamic acid. The tourniquet was then let down for final tourniquet time 64 minutes. Hemostasis assured use electrocautery. Extensor Meclomen then closed with combination 1 PDS suture #1 Vicryl suture in a [id number] fashion. Extensor Meclomen checked found to be intact. Subcutaneous tissue then closed with 2 Dexon suture in a buried interrupted fashion skin was closed with skin pamela. Leg was then cleaned and dried and a sterile dressing with Xeroform, 4 fours, sterile cast padding, Stephon bandage were applied. Patient then transferred to the recovery room in stable condition. Patient tolerated the procedure well and there were no complications. Artur Peña, my physician orthodontic technician assistant, was present for the entire procedure. His assistance was required for proper patient positioning, prepping and draping, surgical exposure, retraction, performed the technical details of the operation, placement implants, closure of the incision site, and placement of postoperative sterile bandage. I attest to the content of the Intraoperative Record and any orders documented therein. Any exceptions are noted below.
--- NOTE | 2025-08-24 09:35 | XRay Report ---
XR knee LT 1 or 2V routine CLINICAL HISTORY: Surgical Post Op COMPARISON: 01/21/2019 FINDINGS: There are postsurgical changes of a total left knee arthroplasty and patellar resurfacing. Femoral tibial components appear well seated. There are overlying anterior skin pamela. There is ga s within soft tissues consistent with recent surgery. IMPRESSION: Postsurgical changes of a total left knee arthroplasty. No complicating features identifi ed. ACT 112: Negative or not required by law. Electronically signed by: Reed Finn M.D. 08/24/2025 9:33 AM
[2025-08-24] MEDS ORDERED: MAGNESIUM HYDROXIDE SUSP 30 ML UDC PO PRN (10:24)
[2025-08-24] MEDS ORDERED: METOCLOPRAMIDE HCL INJ 5 MG/ML 2 ML VIAL IV PRN (10:24)
[2025-08-24] MEDS ORDERED: NALOXONE HCL 0.4 MG/1 ML VIAL/CARP IV PRN (10:24)
[2025-08-24] MEDS ORDERED: ALUMINUM/MAGNESIUM SUSP 30 ML UDC PO PRN (10:24)
[2025-08-24] MEDS ORDERED: HYDROmorphone INJ 0.5 MG/0.5 ML SYR IV PRN (10:24)
[2025-08-24] MEDS ORDERED: ONDANSETRON INJ 2 MG/ML 2 ML VIAL IV PRN (10:24)
[2025-08-24] MEDS: SODIUM CHLORIDE 0.9% 1,000 ML IV SCH (11:20)
[2025-08-24] MEDS: KETOROLAC TROMETHAMINE 15 MG/ML VIAL IV SCH (11:20)
--- NOTE | 2025-08-24 13:47 | Anesthesiology Progress Note ---
Date of Service August 24, 2025 Anesthesia Post Procedure Vital Signs Vital Signs: Temp Pulse Pulse Resp BP Pulse Ox O2 Del Method 08/24/25 13:15 36.4 C L 90 18 119/72 97 Room Air 08/24/25 12:15 36.7 C 86 18 135/84 96 Room Air 08/24/25 11:15 36.6 C 90 17 138/84 95 Room Air 08/24/25 10:54 36.3 C L 84 16 123/83 97 Room Air 08/24/25 10:15 36.5 C 86 17 126/78 97 Room Air 08/24/25 09:50 83 12 135/77 93 Room Air 08/24/25 09:45 36.4 C L 83 16 141/79 H 95 Room Air 08/24/25 09:35 85 14 134/77 93 Room Air 08/24/25 09:25 87 13 131/79 95 Room Air 08/24/25 09:15 84 12 137/74 97 Room Air 08/24/25 09:09 36.4 C L 87 14 133/73 96 Room Air 08/24/25 05:30 36.5 C 63 20 146/77 H 97 Room Air Pain Intensity Left Upper Arm: Pain Intensity: 4 Notes Mental Status: alert / awake / arousable Patient Amnestic to Procedure: Yes Nausea / Vomiting: adequately controlled Pain: adequately controlled Airway Patency, RR, SpO2: stable & adequate BP & HR: stable & adequate Hydration State: stable & adequate Neuraxial Anesthesia: was administered and sensory block is resolving Anesthetic Complications: no major complications apparent
[2025-08-24] MEDS: TRANEXAMIC ACID / 0.7% NACL 1,000 MG/100 ML BAG IV SCH (15:22)
[2025-08-24] MEDS: ASCORBIC ACID 500 MG TAB PO SCH (16:32)
[2025-08-24] MEDS: LORazepam 0.5 MG TAB PO SCH (20:33)
[2025-08-24] MEDS: DOCUSATE SODIUM 100 MG CAP PO SCH (20:33)
[2025-08-24] MEDS: SENNA 8.6 MG TAB PO SCH (20:33)
[2025-08-24] MEDS: ASPIRIN 81 MG ECTAB PO SCH (20:33)
[2025-08-24] MEDS: VALSARTAN/SACUBITRIL 26/24MG TAB PO SCH (20:34)
[2025-08-24] MEDS: METOPROLOL SUCC 25MG EXT REL TAB PO SCH (20:41)
[2025-08-24] MEDS ORDERED: [UNRECOGNIZED DRUG - OTHER] PO SCH (21:00)
[2025-08-24] MEDS ORDERED: OMEGA DHA EPA FISH OIL PO SCH (21:00)
[2025-08-25 07:38] VITALS: TEMP 98.4
[2025-08-25 07:50] LABS: Hematocrit (blood only) 33.1 % (37.0-47.0); Hemoglobin 11.3 g/dl (12.0-16.0); Mean Corpuscular Hemoglobin 31.0 pg (25.0-34.0); Mean Corpuscular Volume 90.7 fL (80.0-100.0); Platelet Count 168 K/uL (130-400); RDW Standard Deviation 47.4 fL (36.4-46.3); Red Blood Count 3.65 M/uL (4.20-5.40); White Blood Count 11.36 K/ul (4.8-10.8)
--- NOTE | 2025-08-25 08:07 | Orthopedic Progress Note ---
Date of Service August 25, 2025 Assessment & Plan (1) Status post total left knee replacement: * Continue Current Treatment * Disposition: home * Daily treatment: Physical Therapy/ Occupational Therapy per protocol * Weight bearing status: WBAT * Continue to monitor for ABLA * Pain control * DVT prophylaxis, ASA * Office/hospital f/u 2 weeks for progress check and staple/suture removal * Plan for discharge today pending PT/OT clearance Subjective .Active Problems: S/p left TKA POD 1 79 y/o female s/p left TKA. Doing well overall, pain managed and improved function. Denies fever/chills, chest pain/SOB, nausea/vomiting. Otherwise no complaints. Review of Systems All systems reviewed & are unremarkable except as noted in HPI & below. Physical Exam . * General: Alert and oriented, no acute distress * Constitutional: well-developed, well-nourished. * Respiratory: Normal respiratory effort, no distress * Gastrointestinal: No tenderness to palpation, no rigidity or guarding. * Skin: No rash or lesion. * Neurologic: Grossly normal * Musculoskeletal: left knee surgical dressing CDI, not removed for exam. Otherwise no obvious deformity or overlying skin changes RLE. Diffuse TTP distal thigh and knee region. Otherwise no specific tenderness of proximal thigh, lower leg, foot/ankle. AROM knee flexion 90 degrees. AROM foot/ankle intact. Sensation intact plantar/dorsal foot. Brisk capillary refill. Results & Data Results & Data Laboratory Results . Diagnostic Findings . Knee X-Ray 08/24/25 09:06 XR knee LT 1 or 2V routine CLINICAL HISTORY: Surgical Post Op COMPARISON: 01/21/2019 FINDINGS: There are postsurgical changes of a total left knee arthroplasty and patellar resurfacing. Femoral tibial components appear well seated. There are overlying anterior skin pamela. There is gas within soft tissues consistent with recent surgery. IMPRESSION: Postsurgical changes of a total left knee arthroplasty. No complicating features identified. ACT 112: Negative or not required by law. Electronically signed by: Reed Finn M.D. 08/24/2025 9:33 AM PG Care Time/CCT Total # of Minutes Spent Total Time Spent with Patient: Total time spent is greater than 50% in coordination of care (as documented) at patient's floor/unit and/or counseling patient: Coding Level of Care Code 30200 Post Operative Follow-Up Diagnoses Status post total left knee replacement Z96.652
[2025-08-25 08:08] LABS: Anion Gap 7.0 (3-11); Blood Urea Nitrogen 23.0 mg/dl (6-23); Calcium 8.6 mg/dl (8.6-10.3); Carbon Dioxide 25.0 mmol/L (21-32); Chloride 106.0 mmol/L (98-107); Creatinine Clr Calc Pharmacy 78.4 ml/min; Glucose 106.0 mg/dl (70-99(Fasting)); Potassium 4.1 mmol/L (3.5-5.1); Sodium 138.0 mmol/L (136-145)
[2025-08-25] MEDS: SENNA 8.6 MG TAB PO SCH (08:26)
[2025-08-25] MEDS: CEROVITE ADV FORMULA TAB PO SCH (08:28)
[2025-08-25] MEDS: CALCIUM CARBONATE 1250MG TAB PO SCH (08:28)
[2025-08-25] MEDS: CHOLECALCIFEROL 25 MCG (1000 UNITS) TAB PO SCH (08:28)
[2025-08-25] MEDS: MULTIVITAMIN TAB PO SCH (08:29)
[2025-08-25] MEDS: SERTRALINE HCL 50 MG TABLET PO SCH (08:29)
[2025-08-25] MEDS: dexAMETHasone 10 MG in SYRINGE 0 ML IV SCH (08:30)
[2025-08-25 08:40] VITALS: BP 112/73; PULSE 68; RESP 19; O2SAT 97
== END 2025-08-25 11:17 | disposition home health service (06) ==
LOC: ASU 05:17 → 3N 05:17